=== PATIENT | female | born 1945 | race Caucasian/White ===

== ENCOUNTER → 2016-11-16 | Outpatient (CLI) | payer OTHER ==
[2016-11-16 14:36] LABS: ALT/SGPT 29 U/L (12-78); AST/SGOT 23 U/L (15-37); BLOOD UREA NITROGEN 15 mg/dl (7-18); BUN/CREATININE RATIO 15.9 (10-20); CARBON DIOXIDE 31 mmol/L (21-32); CHLORIDE 102 mmol/L (98-107); CHOLESTEROL 205 mg/dl (0-200); CREATININE 0.95 mg/dl (0.60-1.20); GLUCOSE 109 mg/dl (70-99); POTASSIUM 4.2 mmol/L (3.5-5.1); SODIUM 139 mmol/L (136-145); TRIGLYCERIDES 184 mg/dl (0-150); VERY LOW DENSITY LIPOPROT CALC 37 mg/dl
[2016-11-16 14:37] LABS: CALCIUM 9.2 mg/dl (8.5-10.1)
[2016-11-16 14:39] LABS: CHOLESTEROL/HDL RATIO 3.9; HDL CHOLESTEROL 52 mg/dl; LDL CHOLESTEROL CALCULATED 116 mg/dl
== END | disposition home or self-care (01) ==
LOC: C.LABMFLN 11:05
PROVIDERS: ATTEND Family Medicine
DX: E78.5 Hyperlipidemia, unspecified (principal)

== ENCOUNTER → 2017-06-06 | Outpatient (CLI) | payer OTHER ==
[2017-06-06 12:53] LABS: ALT/SGPT 25 U/L (12-78); AST/SGOT 22 U/L (15-37); BLOOD UREA NITROGEN 21 mg/dl (7-18); CALCIUM 8.6 mg/dl (8.5-10.1); CARBON DIOXIDE 32 mmol/L (21-32); CHOLESTEROL 192 mg/dl (0-200); CREATININE 0.82 mg/dl (0.60-1.20); GLUCOSE 121 mg/dl (70-99); POTASSIUM 3.8 mmol/L (3.5-5.1); SODIUM 138 mmol/L (136-145)
[2017-06-06 12:56] LABS: LDL CHOLESTEROL CALCULATED 118 mg/dl
== END | disposition home or self-care (01) ==
LOC: C.LABMFLN 07:59
PROVIDERS: ATTEND Family Medicine
DX: I10 Essential (primary) hypertension (principal); E78.5 Hyperlipidemia, unspecified

== ENCOUNTER → 2017-07-28 | Outpatient (CLI) | payer OTHER ==
[2017-07-28 13:23] LABS: BLOOD UREA NITROGEN 14 mg/dl (7-18); CALCIUM 9.1 mg/dl (8.5-10.1); CARBON DIOXIDE 30 mmol/L (21-32); GLUCOSE 139 mg/dl (70-99); POTASSIUM 4.2 mmol/L (3.5-5.1); SODIUM 140 mmol/L (136-145)
== END ==
LOC: C.LABMFLN 08:23
PROVIDERS: ATTEND Family Medicine
DX: I10 Essential (primary) hypertension (principal)

== ENCOUNTER → 2018-02-02 | Outpatient (CLI) | payer OTHER ==
[2018-02-02 13:29] LABS: ALT/SGPT 18 U/L (12-78); AST/SGOT 20 U/L (15-37); BLOOD UREA NITROGEN 11 mg/dl (7-18); CALCIUM 9.1 mg/dl (8.5-10.1); CARBON DIOXIDE 29 mmol/L (21-32); CHOLESTEROL 150 mg/dl (0-200); CREATININE 0.79 mg/dl (0.60-1.20); GLUCOSE 128 mg/dl (70-99); LDL CHOLESTEROL CALCULATED 79 mg/dl; POTASSIUM 4.4 mmol/L (3.5-5.1); SODIUM 136 mmol/L (136-145)
== END | disposition home or self-care (01) ==
LOC: C.LABMFLN 09:24
PROVIDERS: ATTEND Family Medicine
DX: I10 Essential (primary) hypertension (principal); E78.5 Hyperlipidemia, unspecified